=== PATIENT | female | born 1975 | race Caucasian/White ===

== ENCOUNTER 2018-04-18 12:47 | Emergency (ER) | payer MEDICAID ==
[~2018-04-18] VITALS: Ht 152.4 cm; Wt 108.3 kg
[~2018-04-18 12:47] MED LIST: NONE PER PT
[2018-04-18 12:58] VITALS: BP 120/82
[2018-04-18 14:05] LABS: BASOPHILS # (AUTO) 0.04 x10^3/uL (0-0.1); BASOPHILS % (AUTO) 1 % (0-1); EOSINOPHILS # (AUTO) 0.09 x10^3/uL (0-0.4); EOSINOPHILS % (AUTO) 1 % (1-7); LYMPHOCYTES # (AUTO) 2.04 x10^3/uL (1-3.4); LYMPHOCYTES % (AUTO) 27 % (22-44); MD NO; MEAN CORPUSCULAR HEMOGLOBIN 24.1 pg (27.0-34.8); MEAN CORPUSCULAR HGB CONC 32.4 g/dL (32.4-35.8); MEAN CORPUSCULAR VOLUME 74.2 fL (80-100); MEAN PLATELET VOLUME 8.7 fL (7.4-10.4); MONOCYTES # (AUTO) 0.41 x10^3/uL (0.2-0.8); MONOCYTES % (AUTO) 6 % (2-9); NEUTROPHILS # (AUTO) 4.87 x10^3/uL (1.8-6.8); NEUTROPHILS % (AUTO) 65 % (42-75); PLATELET COUNT 302 x10^3/uL (130-400); RED BLOOD COUNT 4.93 x10^6/uL (3.82-5.3); RED CELL DISTRIBUTION WIDTH 17.9 % (9.6-15.2)
[2018-04-18 14:14] LABS: ALANINE AMINOTRANSFERASE 27 U/L (12-78); ALBUMIN 3.9 g/dL (3.4-5.0); ANION GAP 7 mmol/L (5-15); CALCIUM 10.8 mg/dL (8.5-10.1); CHLORIDE 111 mmol/L (98-107); CREATININE 1.29 mg/dL (0.55-1.02)
[2018-04-18 14:17] LABS: ALKALINE PHOSPHATASE 103 U/L (45-117); BILIRUBIN,TOTAL 0.3 mg/dL (0.2-1.0); TOTAL PROTEIN 7.6 g/dL (6.4-8.2)
== END 2018-04-18 14:33 | disposition left against medical advice (07) ==
LOC: ED 14:04
DX: N93.8 Other specified abnormal uterine and vaginal bleeding (principal); E66.01 Morbid (severe) obesity due to excess calories; Z68.42 Body mass index [BMI] 45.0-49.9, adult
CPT/HCPCS: 36415; 80053; 83690; 84703; 85025; 99284

== ENCOUNTER 2018-04-18 20:04 | Emergency (ER) | payer MEDICAID ==
[~2018-04-18] VITALS: Ht 152.4 cm; Wt 109.4 kg
[2018-04-18 20:06] VITALS: BP 139/91
[2018-04-18] MEDS ORDERED: ACETAMINOPHEN 325 MG TABLET ONE (20:54)
[2018-04-18] MEDS ORDERED: ONDANSETRON ODT 4 MG ONE (20:55)
[2018-04-18] MEDS ORDERED: DIPHENHYDRAMINE 25 MG CAPSULE ONE (20:55)
[2018-04-18] MEDS ORDERED: ACETAMINOPHEN 325 MG TABLET PO ONE (21:00)
[2018-04-18] MEDS ORDERED: DIPHENHYDRAMINE 25 MG CAPSULE PO ONE (21:00)
[2018-04-18] MEDS ORDERED: ONDANSETRON ODT 4 MG PO ONE (21:00)
[2018-04-18 21:14] LABS: ANION GAP 8 mmol/L (5-15); CALCIUM 9.9 mg/dL (8.5-10.1); CHLORIDE 112 mmol/L (98-107); CREATININE 1.39 mg/dL (0.55-1.02)
== END 2018-04-18 21:59 | disposition home or self-care (01) ==
LOC: ED 20:31
DX: N93.8 Other specified abnormal uterine and vaginal bleeding (principal); G43.909 Migraine, unspecified, not intractable, without status migrainosus; N28.9 Disorder of kidney and ureter, unspecified; E66.01 Morbid (severe) obesity due to excess calories; Z90.49 Acquired absence of other specified parts of digestive tract
CPT/HCPCS: 36415; 76830; 80048; 99285; Q0162; Q0163

== ENCOUNTER 2018-10-29 15:42 | Emergency (ER) | payer MEDICAID ==
[~2018-10-29] VITALS: Ht 152.4 cm; Wt 117.5 kg
[2018-10-29 15:45] VITALS: BP 137/82
[2018-10-29] MEDS ORDERED: TOBRAMYCIN OPHTH 5ML OP ONE (16:00)
== END 2018-10-29 16:55 | disposition home or self-care (01) ==
LOC: ED 16:42
DX: H10.32 Unspecified acute conjunctivitis, left eye (principal); F17.200 Nicotine dependence, unspecified, uncomplicated; E66.01 Morbid (severe) obesity due to excess calories; G43.909 Migraine, unspecified, not intractable, without status migrainosus; Z68.43 Body mass index [BMI] 50.0-59.9, adult
CPT/HCPCS: 99283